=== PATIENT | female | born 1970 | race Caucasian/White ===

== ENCOUNTER 2017-05-06 13:44 | Observation (INO) | payer OTHER ==
[2017-05-06] MEDS ORDERED: ceFAZolin SODIUM 2 GM in DEXTROSE 5 % IN WATER 100 ML IV PRN ×2 (16:42)
[2017-05-06] MEDS ORDERED: ceFAZolin SODIUM 2 GM in DEXTROSE 5 % IN WATER 50 ML IV PRN ×2 (17:55)
[2017-05-06] MEDS ORDERED: RINGER'S SOLUTION,LACTATED 1,000 ML IV ONE ×3 (19:10→21:50)
[2017-05-06] MEDS ORDERED: ceFAZolin SODIUM 1 GM VIAL IV ONE (19:25)
[2017-05-06] MEDS ORDERED: BUPIVACAINE HCL/EPINEPHRINE 50 ML VIAL IJ ONE ×2 (19:35)
[2017-05-06] MEDS ORDERED: ONDANSETRON HCL/PF 2 MG/ML VIAL IV PRN (21:46)
[2017-05-06] MEDS ORDERED: RINGER'S SOLUTION,LACTATED 1,000 ML IV PRN (21:46)
[2017-05-06] MEDS ORDERED: MORPHINE SULFATE 4 MG/ML SYRG IV PRN (21:46)
[2017-05-06] MEDS ORDERED: PANTOPRAZOLE SODIUM 40 MG in NORMAL SALINE 100 ML IV SCH (22:00)
[2017-05-06] MEDS ORDERED: LISINOPRIL 10 MG TABLET PO SCH (22:15)
[2017-05-07] MEDS: HYDROCHLOROTHIAZIDE 25 MG TABLET PO SCH ×2 (00:04→08:53)
[2017-05-07] MEDS: oxyCODONE HCL/ACETAMINOPHEN 1 TAB TABLET PO PRN ×3 (04:59→11:14)
[2017-05-07] MEDS ORDERED: LEVOTHYROXINE SODIUM 75 MCG TABLET PO SCH (06:30)
--- NOTE | 2017-05-07 07:25 | OR ---
Operative Report - Dictated Report Narrative: DATE OF OPERATION: 05/06/2017 PREOPERATIVE DIAGNOSIS: Acute cholecystitis and cholelithiasis POSTOPERATIVE DIAGNOSIS: Severe acute cholecystitis and cholelithiasis OPERATION: Laparoscopic cholecystectomy SURGEON: TAMMY Serrano MD ANESTHESIA Gen. endotracheal Frank Powell CRNA INDICATIONS FOR PROCEDURE: Patient is a 47-year-old female referred by Dr. Sheridan. The patient has a 2 day history of severe right upper quadrant pain. She has had a previous attack of this nature which lasted for 2 days. She has elevated white blood cell count. Liver function studies are normal. Gallbladder ultrasound reveals stones and evidence of inflammation. No ductal dilatation. FINDINGS: Severe acute cholecystitis with cholelithiasis. Adhesions from previous NARRATIVE OF PROCEDURE: The patient was identified preoperatively. Prior to the administration of anesthetic a multidisciplinary timeout observed. With the patient in the supine position, SCDs were placed, 2 g of intravenous Ancef administered, and general endotracheal anesthetic administered. The patient's abdomen was prepped with Betadine solution and a generous operating field outlined with 4 sterile towels. The remainder the patient was covered with a sterile disposable drape. An infraumbilical skin incision was made. Dissection was carried along the umbilical stalk until the fascia of the linea alba was encountered. This was incised. The peritoneum was then elevated and incised to allow entry into the abdomen under direct vision. A Hussan cannula was placed, and the abdomen insufflated with CO2. The laparoscopic camera was introduced and the abdomen briefly explored. Those portions of the liver immediately visible appeared normal. The remainder of the abdominal organs were secured by fat. Inferiorly there were transverse right lower quadrant omental adhesions to the undersurface of the previous incision. Those portions of the sigmoid colon visible appeared normal. Next under direct vision 3 additional working ports were inserted through separate skin incisions , one in the subxiphoid, one in the right upper quadrant, and one in the right flank. The omentum adherent to the dome of the gallbladder was swept inferiorly revealing intense inflammation. Adhesions to the gallbladder were gradually lysed by blunt, hydrostatic, and cautery dissection until the upper portion of the gallbladder was liberated. The gallbladder was then decompressed with a needle and a sample of bile submitted for culture. The puncture site was then grasped. The apex of the gallbladder was retracted cephalad. Gradually omental adhesions were removed staying close to the gallbladder until the expected location of the cystic duct was identified. The cystic duct was dissected free for a sufficient distance for confident identification. It was doubly clipped and divided. The cystic artery was identified doubly clipped and divided. The gallbladder was then removed from the liver bed by retrograde electrocautery dissection. Prior to severing the last attachments of the gallbladder the liver bed was inspected and found to be hemostatic with no evidence of bile leak. The previously placed clips were seen to be intact. The right upper quadrant was suctioned clean. The last attachments of the gallbladder were divided. It was placed in an Endobag and parked in the right upper quadrant. The smaller working ports were withdrawn under direct vision to ensure entry site hemostasis. The gallbladder was removed in conjunction with the Hussan cannula. The pneumoperitoneum was allowed to escape, and after receiving a correct sponge needle and instrument count attention was turned to closing the abdomen. The fascia and peritoneum at the umbilicus were approximated with interrupted sutures of #1 Vicryl. Skin incisions were approximated with interrupted vertical mattress sutures of 4-0 nylon. The operative sites were washed and dried. Dressings of Bactroban ointment and large Band-Aids were applied to the small port sites. The umbilical incision was dressed with Bactroban ointment, 2 x 2, large Band-Aid and Medipore tape. The operative procedure was terminated at this point. The patient tolerated the anesthetic and procedure well without complication. There was no measurable blood loss. The gallbladder was submitted to pathology. 0.5% Marcaine with epinephrine was used for local anesthetic infiltration. The patient was transferred to the recovery room awake, extubated , and in stable condition. Reviewed and electronically signed
[2017-05-07] MEDS ORDERED: METOPROLOL SUCCINATE 100 MG TABLET.SA PO SCH (09:00)
[2017-05-07] MEDS ORDERED: LISINOPRIL 20 MG TABLET PO SCH (09:00)
[2017-05-07] MEDS ORDERED: MORPHINE SULFATE 2 MG/ML DISP.SYRIN IV PRN (11:00)
[2017-05-07 11:04] VITALS: BP 160/80
--- NOTE | 2017-05-07 14:46 | DS ---
(1) Acute cholecystitis due to biliary calculus Problem: Acute Description of Stay: Underwent laparoscopic cholecystectomy for acute cholecystitis with cholelithiasis on evening of 05/06/17, placed in observation. VS remained normal, presenting pain replaced with incisional discomfort controlled with po Percocet. Tolerated advanced diet and OOB independently. Dressings intact. Desired discharge. Home with instructions. Rx for Percocet. Phone #'s to call for questions or concerns. f/u apt 1 week. Procedures Performed: see notes below - laparoscopic cholecystectomy Discharge Disposition: Home self care Disposition: Home self-care Condition: Good Discharge Activity: Activity as tolerated, No Lifting Discharge Diet: General/regular food Referrals: Pamela Sheridan MD [Primary Care Provider] - Problem Oriented Discharge Instructions to Patient/Family: Laparoscopic Cholecystectomy, Care After Complete Home Medications List: Complete Home Medication List: RX: Levothyroxine Sodium [Synthroid] 75 mcg PO DAILY 05/06/17 RX: Ascorbic Acid/Vitamin E/Biotin [Hair Skin Nails-Biotin Gummies] 1 each PO DAILY 05/07/17 RX: Glucosam/Chond/Hyalu/Cf Borate [Move Free Joint Health Tablet] 1 each PO DAILY 05/07/17 RX: Lisinopril/Hydrochlorothiazide [Lisinopril-Hctz 20-25 mg Tab] 1 each PO DAILY 05/07/17 RX: Metoprolol Succinate [Toprol Xl] 100 mg PO DAILY 05/07/17 RX: Multivit-Min/Iron/Folic/Nim801 [Hair, Skin and Nails Caplet] 1 each PO DAILY 05/07/17 RX: oxyCODONE HCL/ACETAMINOPHEN [Percocet 5 MG/325 MG] 2 tab PO Q4H PRN #20 tablet 05/07/17 RX: tiZANidine HCL [Tizanidine HCl] 4 mg PO Q6H PRN 05/07/17
[2017-05-08] MEDS ORDERED: METOPROLOL SUCCINATE 100 MG TABLET.SA PO SCH (09:00)
[2017-05-08] MEDS ORDERED: HYDROCHLOROTHIAZIDE 25 MG TABLET PO SCH (09:00)
[2017-05-08] MEDS ORDERED: NON-FORMULARY 1 DOSE DOSE (Lisinopril/Hydrochlorothiazide [Lisinopril-Hctz 20-25 Mg Tab] 1 PO SCH (09:00)
[2017-05-08] MEDS ORDERED: LISINOPRIL 20 MG TABLET PO SCH (09:00)
== END 2017-05-07 15:20 | disposition home or self-care (01) ==
LOC: RAD 13:44 → MS 16:17
PROVIDERS: ADMIT Surgery; ATTEND Surgery
PROC: 0FT44ZZ Resection of Gallbladder, Percutaneous Endoscopic Approach (ICD-10-PCS; principal; 2017-05-06 17:00)
DX: K80.12 Calculus of gallbladder with acute and chronic cholecystitis without obstruction (principal); I10 Essential (primary) hypertension; E03.9 Hypothyroidism, unspecified; Z68.37 Body mass index [BMI] 37.0-37.9, adult
CPT/HCPCS: 47562; 76705; 87070; 88304; 96374; 96375; G0378; G0379; J2405